=== PATIENT | male | born 2000 | race Caucasian/White ===

== ENCOUNTER 2024-01-11 17:52 | Inpatient (IN) | payer BC ==
[~2024-01-11] VITALS: Ht 177.8 cm; Wt 159.3 kg
[2024-01-11 19:07] LABS: BASO # 0.1 K/mm3 (0.0-0.2); BASO % 0.6 % (0.0-2.0); EOS # 0.1 K/mm3 (0.0-0.7); EOS % 1.2 % (0.0-4.0); GRAN % 67.5 % (42.2-75.2); HEMOGLOBIN 11.1 g/dl (13.5-18.0); LYMPH # 2.1 K/mm3 (1.2-3.4); LYMPH % 17.9 % (20.0-51.0); MEAN CELL VOLUME 90 fl (80.0-100.0); MEAN CORPUSCULAR HEMOGLOBIN 28 pg (27-31); MEAN CORPUSCULAR HGB CONC 31 g/dl (33.0-37.0); MEAN PLATELET VOLUME 9.4 fl (7.4-10.4); MONO # 1.4 K/mm3 (0.1-0.6); PLATELET COUNT 338 K/mm3 (130-400); RED BLOOD COUNT 3.95 M/mm3 (4.20-5.60); REDCELL DISTRIBUTION WIDTH-CV 14.6 % (11.5-14.5)
[2024-01-11 19:13] LABS: HEMATOCRIT 35.6 % (42.0-52.0)
[2024-01-11 19:16] LABS: ALBUMIN 3.2 g/dL (3.5-5.0); BILIRUBIN,TOTAL 0.3 mg/dL (0.2-1.2); CALCIUM 9.3 mg/dL (8.4-10.2); CREATININE, serum 0.92 mg/dL (0.72-1.25); POTASSIUM 4.2 mEq/L (3.5-4.5); TOTAL PROTEIN 7.7 g/dl (6.2-8.1)
[2024-01-11] MEDS ORDERED: Ketorolac 30 MG/ML VIAL IV ONE (19:45)
[2024-01-11] MEDS ORDERED: Acetaminophen 325 MG TAB PO PRN (21:15)
[2024-01-11 23:15] VITALS: BP 126/73; PULSE 119; TEMP 99
[2024-01-11] MEDS ORDERED: Furosemide 40 MG/4 ML VIAL IV ONE (23:30)
[2024-01-12] VITALS (11 sets, daily range): BP systolic 108–137; BP diastolic 72–82; PULSE 104–115; TEMP 98–98.4
[2024-01-12] MEDS ORDERED: PROAIR HFA0.09 MG/AC IH (00:06)
[2024-01-12] MEDS ORDERED: Albuterol 0.083% Neb Soln 2.5 MG/3 ML UD IH PRN (00:15)
--- NOTE | 2024-01-12 05:00 | NUR ---
PT ARRIVED TO THE MEDICAL FLOOR AROUND 2315HRS TO ROOM 315. PT A&O X4; VSS WITH A ELEVATED HR (ONE TEEN'S); O2 RA. PT COMPLAINED OF BLE PAIN. PT GIVEN TYLENOL FOR PAIN AND LEGS GENTLY CLEANED AND WRAPPED PER REQUEST. PT DENIED CHEST PAIN, SOB, N,V,D OR DIZZINESS. ADMISSIONS ASSESSMENT AND MED REC COMPLETE. PT ORIENTED TO ROOM AND HOSPITAL POLICY. ALL QUESTIONS AND CONCERNS ADDRESSED. CALL LIGHT WITHIN REACH.
--- NOTE | 2024-01-12 08:53 | NUR ---
Vancomycin Initial Dosing Pharmacy Note Ordering provider: MD ROBBIN Indication/duration: CELLULITIS Relevant comorbidities: OBESITY LABS: SCR 0.9, WBC 11.8 Recommendation: VANCOMYCIN ~10 MG/KG Maintenance dose: 1.25 grams every 8 hours Trough goal: 10-15 ug/mL. TROUGH 01/12 @ 1630
[2024-01-12] MEDS ORDERED: cefTRIAXone 2 G in Water For Injection,Sterile 20 ML IV SCH (09:00)
[2024-01-12] MEDS ORDERED: Vancomycin 1.25 GM,Special Dose/Pharmacy Prepared 1.25 GM in NS 250 ML IV SCH (09:00)
--- NOTE | 2024-01-12 09:00 | NUR ---
PATIENT RESTING IN BED. ALERT AND ORIENTED. SHIFT ASSESSMENT COMPLETE. EDEMA TO BLE. PATIENT SAYS THEY ARE AT "NORMAL LEVEL OF PAIN." REFUSES PAIN MEDICATION AT THIS TIME. ALL NEEDS MET. CALL LIGHT WITHIN REACH.
--- NOTE | 2024-01-12 09:24 | NUR ---
[employer] worker met with pt to discuss intake information. He reports to live alone in [place]. He reports his mother, Luh [phone] as his contact. Pt does not have a DPOA-HC. He reports to not have a PCP due to not usually having a need. SW provided PCP list for pt to review and choose. Pt verbalized understanding of this. He obtains medications from [facility] with no difficulties. He reports to be independent with ADLS and uses no DME. Discharge Plan: home
--- NOTE | 2024-01-12 13:34 | NUR ---
D: Professor Of Theology stopped by room on rounds. A: Pt was resting and content. Pt has no needs right now. P: Professor Of Theology informed pt that if he needed anything from the masseur/masseuse area to let his nurse know. Professor Of Theology will follow up as needed.
[2024-01-13] VITALS (12 sets, daily range): BP systolic 112–137; BP diastolic 64–80; PULSE 92–105; TEMP 98.1–98.5
--- NOTE | 2024-01-13 00:47 | NUR ---
patient lying in bed, alert and oriented x4. denies chest pain and shortness of breath. BLE edema with redness, open weeping blisters covered with abd, krilex and uri wrap, CDI. IV in LAC is patent, site CDI. pt has no further needs, questions, or concerns at this time. ambulating with steady gait. call light within reach, will continue to monitor.
[2024-01-13 06:49] LABS: BASO % 0.4 % (0.0-2.0); EOS # 0.2 K/mm3 (0.0-0.7); EOS % 2.7 % (0.0-4.0); GRAN # 5.3 K/mm3 (1.4-6.5); GRAN % 64.5 % (42.2-75.2); HEMOGLOBIN 10.2 g/dl (13.5-18.0); LYMPH # 1.7 K/mm3 (1.2-3.4); LYMPH % 20.4 % (20.0-51.0); MEAN CELL VOLUME 91 fl (80.0-100.0); MEAN CORPUSCULAR HEMOGLOBIN 29 pg (27-31); MEAN CORPUSCULAR HGB CONC 31 g/dl (33.0-37.0); MEAN PLATELET VOLUME 9.5 fl (7.4-10.4); MONO # 0.9 K/mm3 (0.1-0.6); MONO % 11.3 % (1.7-9.3); PLATELET COUNT 270 K/mm3 (130-400); RED BLOOD COUNT 3.57 M/mm3 (4.20-5.60); REDCELL DISTRIBUTION WIDTH-CV 14.6 % (11.5-14.5)
[2024-01-13 06:50] LABS: HEMATOCRIT 32.5 % (42.0-52.0)
[2024-01-13 07:00] LABS: CALCIUM 8.8 mg/dL (8.4-10.2); CREATININE, serum 0.97 mg/dL (0.72-1.25); POTASSIUM 4.5 mEq/L (3.5-4.5)
--- NOTE | 2024-01-13 21:20 | NUR ---
Patient resting in bed. Rates his pain at 2/10, denies need for pain meds. Needs met. Assessment complete. IV in left AC flushes easily without complications. Call light and persoanal items in reach. Bed in low position.
[2024-01-14 00:31] VITALS: BP_SYST 124
[2024-01-14 03:13] VITALS: BP 139/84; PULSE 96; TEMP 98.2
[2024-01-14 05:21] VITALS: BP_SYST 139
--- NOTE | 2024-01-14 05:50 | NUR ---
Patient sitting up in bed. Denies any pain or needs at this time. Walked with patient to standing scale to get weight. No events over night. BLE dressing CDI. Call light and personal items in reach. Bed in low position.
[2024-01-14 06:55] LABS: BASO % 0.2 % (0.0-2.0); EOS # 0.3 K/mm3 (0.0-0.7); GRAN # 5.9 K/mm3 (1.4-6.5); GRAN % 67.7 % (42.2-75.2); HEMOGLOBIN 10.5 g/dl (13.5-18.0); LYMPH # 1.7 K/mm3 (1.2-3.4); LYMPH % 19.5 % (20.0-51.0); MEAN CELL VOLUME 91 fl (80.0-100.0); MEAN CORPUSCULAR HEMOGLOBIN 28 pg (27-31); MEAN CORPUSCULAR HGB CONC 31 g/dl (33.0-37.0); MEAN PLATELET VOLUME 9.6 fl (7.4-10.4); MONO # 0.8 K/mm3 (0.1-0.6); MONO % 8.8 % (1.7-9.3); PLATELET COUNT 311 K/mm3 (130-400); RED BLOOD COUNT 3.72 M/mm3 (4.20-5.60); REDCELL DISTRIBUTION WIDTH-CV 14.4 % (11.5-14.5)
[2024-01-14 06:56] LABS: HEMATOCRIT 33.7 % (42.0-52.0)
[2024-01-14 07:23] LABS: CALCIUM 9.6 mg/dL (8.4-10.2); CREATININE, serum 0.95 mg/dL (0.72-1.25); POTASSIUM 4.1 mEq/L (3.5-4.5)
[2024-01-14 07:28] VITALS: BP 126/78; PULSE 99; TEMP 98.2
[2024-01-14 09:00] VITALS: BP_SYST 126
[2024-01-14] MEDS ORDERED: CEPHALEXIN500 M1 PO (10:15)
[2024-01-14 11:49] VITALS: BP_SYST 126
--- NOTE | 2024-01-14 12:41 | NUR ---
Discharge instructions reviewed with patient- patient verbalizes understanding. INT to LAC d/c'd with cath tip intact. Dressings to BLE changed by Trina Gutierrez APRN this morning. Shena, the nursing unit clerk left a message for WC at rTina Gutierrez's office with patient's phone number to schedule f/u appt. Pt escorted to private vehicle via w/c and discharged home.
== END 2024-01-14 12:45 | disposition home or self-care (01) | DRG 872 ==
LOC: COL.ER 17:52 → MEDICAL 21:01
PROVIDERS: Physician Assistant; ADMIT Internal Medicine
DX: A41.9 Sepsis, unspecified organism (principal); L03.116 Cellulitis of left lower limb; L03.115 Cellulitis of right lower limb; Z68.41 Body mass index [BMI] 40.0-44.9, adult; E66.01 Morbid (severe) obesity due to excess calories; I89.0 Lymphedema, not elsewhere classified; J45.909 Unspecified asthma, uncomplicated; D64.9 Anemia, unspecified; I83.015 Varicose veins of right lower extremity with ulcer other part of foot; I83.025 Varicose veins of left lower extremity with ulcer other part of foot; L97.519 Non-pressure chronic ulcer of other part of right foot with unspecified severity; L97.529 Non-pressure chronic ulcer of other part of left foot with unspecified severity; B95.4 Other streptococcus as the cause of diseases classified elsewhere; B95.61 Methicillin susceptible Staphylococcus aureus infection as the cause of diseases classified elsewhere
CPT/HCPCS: J0696; J1650; J1885; J1940; J2543; J3370; J7040; J7050